=== PATIENT | female | born 1965 | race Caucasian/White ===

== ENCOUNTER 2020-12-20 13:11 | Outpatient (CLI) | payer OTHER, SELFPAY ==
--- NOTE | ~2020-12-20 | MR_ITS ---
EXAMINATION: MR brain/brain stem wo/w con DATE: 12/20/2020 14:41 INDICATION: Dystonia, unspecified. TECHNIQUE: Magnetic resonance imaging (MRI) of the brain and brainstem was performed without and with 15 mL MultiHance intravenous contrast. Sequences included sagittal and axial T1-weighted FSE, axial diffusion-weighted FS EPI, axial T2*-weighted GRE, axial T2-weighted FLAIR Propeller, and axial T2-we ighted Propeller. Postcontrast sequences included axial and coronal T1-weighted FSE. Apparent diffusi on coefficient (ADC) maps were created. COMPARISON: None. FINDINGS: There are scattered areas of nonspecific increased T2-weighted signal intensity in the cere bral white matter, which is within normal limits for the patient's age. There is no intracranial hemo rrhage, acute infarction, or abnormal intracranial mass lesion. The ventricles are normal in size. Th e paranasal sinuses are clear. The orbits are normal. The mastoid air cells are normal. IMPRESSION: 1. Normal aging brain. Reviewed, dictated and finalized at location B. IMPRESSION: 1. Normal aging brain.
[2020-12-20 14:18] LABS: Estimated Glomerular Filt Rate > 60
== END 2020-12-20 13:12 | disposition home or self-care (01) ==
PROVIDERS: PCP Internal Medicine
DX: G24.9 Dystonia, unspecified (principal)
CPT/HCPCS: 70553; A9577

== ENCOUNTER 2021-01-30 15:22 | Outpatient (CLI) | payer OTHER, SELFPAY ==
--- NOTE | ~2021-01-30 | MM_ITS ---
EXAMINATION: MM screening mammo BI HISTORY: Screening TECHNIQUE: Craniocaudal and mediolateral oblique 3-D tomosynthesis images were obtained and synthetic 2-D images were generated. CAD analysis was submitted and interpreted. COMPARISON: Comparison to multiple prior studies sequentially, with oldest reviewed study dated 10/14. BREAST PARENCHYMAL COMPOSITION: There are scattered areas of fibroglandular density. FINDINGS: There is no evidence of suspicious mass, calcification, or architectural distortion to sugg est malignancy in either breast. There has been no suspicious interval change. IMPRESSION: 1. No mammographic evidence of malignancy. 2. Recommend routine screening mammography in one year. BI-RADS Category 1: Negative Reviewed, dictated and finalized at location A.
== END 2021-01-30 15:23 | disposition home or self-care (01) ==
LOC: ANHIMG 15:25
PROVIDERS: PCP Internal Medicine; Visit Provider Internal Medicine
DX: Z12.31 Encounter for screening mammogram for malignant neoplasm of breast (principal)
CPT/HCPCS: 77067

== ENCOUNTER 2023-01-08 15:04 | Outpatient (CLI) | payer OTHER, SELFPAY ==
--- NOTE | ~2023-01-08 | MM_ITS ---
EXAMINATION: MM screening mammo BI HISTORY: Screening mammogram TECHNIQUE: Craniocaudal and mediolateral oblique images were generated. CAD analysis was submitted an d interpreted. COMPARISON: 01/30/2021 bilateral screening mammogram 11/10/2018 diagnostic left mammogram 10/27/2018 bilateral screening mammogram BREAST PARENCHYMAL COMPOSITION: The breasts are almost entirely fatty. FINDINGS: There is no evidence of suspicious mass, calcification, or architectural distortion to sugg est malignancy in either breast. There has been no suspicious interval change. IMPRESSION: 1. No mammographic evidence of malignancy. 2. Recommend routine screening mammography in one year. BI-RADS Category 1: Negative Reviewed, dictated and finalized at location A.
== END 2023-01-08 15:05 | disposition home or self-care (01) ==
LOC: ANHIMG 15:06
PROVIDERS: PCP Family Medicine; Visit Provider Internal Medicine
DX: Z12.31 Encounter for screening mammogram for malignant neoplasm of breast (principal)
CPT/HCPCS: 77067

== ENCOUNTER 2024-07-08 12:30 | Outpatient (RCR) | payer OTHER, MEDICAID, SELFPAY ==
--- NOTE | 2024-06-10 15:32 | OPREHPOC ---
Outpatient Therapy Plan of Care This is a Multidisciplinary Plan of Care that may contain components documented by all disciplines (PT, OT, and ST.) PT Problem 1 PT Problem #1 Knowledge Deficit PT Goal 1 Goal / Goal Update [place] with HEP Target Visit 4 PT Goal 2 Goal / Goal Update Report 50% reduction in cervical pain Target Visit 8 PT Problem 2 PT Problem #2 Impaired Range of Motion PT Goal 1 Goal / Goal Update 1. Improve mildred cervical rotation to 50 degrees to improve facet glide 2. Improve cervical extension to 30 degrees without increased pain to improve cervical decompression Target Visit 8 PT Problem 3 PT Problem #3 Impaired Functional Mobility PT Goal 1 Goal / Goal Update Report 75% reduction in frequency and intensity of radicular symptoms Target Visit 8
--- NOTE | 2024-06-10 15:32 | PTOPEVAL1 ---
Assessment and note entered by Shaw Shell, PT Evaluation Information Assessment Status Evaluation Diagnosis R29.898, Dystonia G24.9 ICD-10 Condition Codes (PT) Pain in right shoulder M25.511 Subjective Information Reports that she has been having pain and pins/ needles pain in mildred shoulders with tingling down to her fingers. She does not have has trouble sleeping and most of her problems come with activity. She takes Ibuprophen when she does have pain and uses topical pain cream on the shoulder. Reported Pain Level Pain Score 5: Self Report Assessment PT Clinical Summary Patient presents with signs and symptoms consistent with cervical stenosis and agitation with history of mildred scapular dystonia. I had difficulty with shoulder strength and ROM assessment due to severe nature of dystonia. Symptoms appear to be originating from cervical spine and patient reported pain relief following today's session. Patient will benefit form skilled therapy to address these deficits. Plan of Care Interventions Electrical Stimulation,Hot Pack/Cold Pack,Manual Therapy,Neuro Re-education,Therapeutic Activities, Therapeutic Exercise PT Services Indicated Yes Treatment Frequency and 2x/week for 8 visits Duration These treatments will address the objective and functional deficits as defined above. The patient will be advanced safely and appropriately in order for the patient to progress towards his/her prior level of function. Additional exercises will be introduced and as well as a comprehensive home exercise program upon discharge, if needed, ?to ensure carryover of functional gains achieved in the clinic. This treatment plan has been reviewed and agreement upon by the patient.
--- NOTE | 2024-07-08 13:19 | PTOPDC ---
Assessment and note entered by Sonya Drew, PT Assessment Status Discharge Diagnosis R29.898, Dystonia G24.9 ICD-10 Condition Codes (PT) Pain in right shoulder M25.511 Subjective Information everything is better since coming for therapy; no pain and stronger; Reported Pain Level Pain Score 0: Self Report Pain Score 0: Self Report Additional Pain Score Comments no pain in her neck or shoulders anymore, no numbness or tingling; Assessment PT Clinical Summary Floridalma has received 8 PT sessions. Compared to the initial evaluation: now reports no pain for the past 2 weeks; no radicular pain into UE's; self assessment with Quick DASH rating of 0% limitation in activity level; increase cervical rotation to R and L and extension ROM and no pain with motions; education completed for HEP and stretching and strengthening of cervical-thoracic musculature. She continues to have dystonia with involuntary motions of neck and R shoulder; tends to position her R UE in extension and adducted position. The goals were achieved. Discharge PT. She is to continue with her HEP. Plan of Care PT Services Indicated No
== END 2024-07-08 14:15 | disposition home or self-care (01) ==
LOC: ANHPT 12:30
PROVIDERS: PCP Family Medicine; Visit Provider Family Medicine
DX: R29.898 Other symptoms and signs involving the musculoskeletal system (principal); O66.0 Obstructed labor due to shoulder dystocia; G24.9 Dystonia, unspecified; Z3A.00 Weeks of gestation of pregnancy not specified
CPT/HCPCS: 97110; 97140; 97161; 97530

== ENCOUNTER 2024-12-03 14:30 | Outpatient (RCR) | payer OTHER, MEDICAID, SELFPAY ==
--- NOTE | 2024-10-20 16:28 | OPREHPOC ---
Outpatient Therapy Plan of Care This is a Multidisciplinary Plan of Care that may contain components documented by all disciplines (PT, OT, and ST.) PT Problem 1 PT Problem #1 Knowledge Deficit PT Goal 1 Goal / Goal Update *independent with HEP Target Visit 10 PT Problem 2 PT Problem #2 Pain PT Goal 1 Goal / Goal Update * pt report pain at worst of R and L UE 06/14 Target Visit 10 PT Problem 3 PT Problem #3 Impaired Strength PT Goal 1 Goal / Goal Update increase strength of R and L UE's, to improve ability to do upper body dressing, self care and home tasks in standing: active motion x 5 reps 1* R shoulder flexion to 30' 2* R shoulder abduction to 20' 3* L shoulder flexion to 95' 4* L shoulder abduction to 40' 5* R elbow flexion/extension 6* L elbow flexion/extension Target Visit 10 PT Problem 4 PT Problem #4 Impaired Range of Motion PT Goal 1 Goal / Goal Update increase ROM of shoulders: passive stretch in supine, to increase joint mobility 1* R shoulder flexion to 80' 2* L shoulder flexion to 120' 3* R shoulder abduction to 50' 4* L shoulder abduction to 90'
--- NOTE | 2024-10-20 16:28 | PTOPEVAL1 ---
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 GOAL: no pain in arms; get arms stronger Reported Pain Level Pain Score 4: Self Report Additional Pain Score Comments pain rating in the past week- stays moderate, about 4/10 all the time; R and L shoulder, wrist hurt; fingers go numb and pins/needles decrease pain: ice, ibuprofen increase pain: writing, word search puzzles Assessment PT Clinical Summary Ayde has the diagnosis of pain in both arms. She has had PT in the past here and has been doing her HEP, but arms hurting more and more weakness. Reports now having problems moving arms to get dressed and eat. Self assessment with the Quick DASH rating of 45% limitation in activity level. With the evaluation: increase tone and spasms in both UE's, R more than L; decreased strength and ROM of both shoulders; poor standing position with R UE in shoulder IR and adduction position. Skilled PT services are indicated for modalities to decrease pain, therapeutic exercises to increase R and L UE strength and education for HEP , posture and positioning of UE's. Plan of Care Interventions Electrical Stimulation,Hot Pack/Cold Pack,Manual Therapy,Patient/Caregiver Education,Therapeutic Activities,Therapeutic Exercise,Ultrasound,Other Other Interventions taping PT Services Indicated Yes Treatment Frequency and 1-2x/wk for 10 visits Duration These treatments will address the objective and functional deficits as defined above. The patient will be advanced safely and appropriately in order for the patient to progress towards his/her prior level of function. Additional exercises will be introduced and as well as a comprehensive home exercise program upon discharge, if needed, ?to ensure carryover of functional gains achieved in the clinic. This treatment plan has been reviewed and agreement upon by the patient.
--- NOTE | 2024-11-26 14:53 | PCPTNOTE ---
Pt canceled due to transportation issues.
--- NOTE | 2024-12-03 15:22 | OPREHPOC ---
Outpatient Therapy Plan of Care This is a Multidisciplinary Plan of Care that may contain components documented by all disciplines (PT, OT, and ST.) PT Problem 1 PT Problem #1 Knowledge Deficit PT Goal 1 Goal / Goal Update *independent with HEP 12-03-24 d/c goal met Target Visit 10 Progress Met PT Problem 2 PT Problem #2 Pain PT Goal 1 Goal / Goal Update * pt report pain at worst of R and L UE 06/14 12-03-24 d/c goal not met, 12/12 at worst Target Visit 10 Progress Not Met PT Problem 3 PT Problem #3 Impaired Strength PT Goal 1 Goal / Goal Update increase strength of R and L UE's, to improve ability to do upper body dressing, self care and home tasks in standing: active motion x 5 reps 1* R shoulder flexion to 30' 2* R shoulder abduction to 20' 3* L shoulder flexion to 95' 4* L shoulder abduction to 40' 5* R elbow flexion/extension 6* L elbow flexion/extension 12-03-24 d/c goals met Target Visit 10 Progress Met PT Problem 4 PT Problem #4 Impaired Range of Motion PT Goal 1 Goal / Goal Update increase ROM of shoulders: passive stretch in supine, to increase joint mobility 1* R shoulder flexion to 80' 2* L shoulder flexion to 120' 3* R shoulder abduction to 50' 4* L shoulder abduction to 90' 12-03-24 d/c goals met Target Visit 10 Progress Met
--- NOTE | 2024-12-03 15:22 | PTOPDC ---
Assessment and note entered by Sonya Drew, PT Assessment Status Discharge ICD-10 Condition Codes (PT) Pain in right shoulder M25.511,Pain in left shoulder M25.512,Weakness R53.1 Other ICD-10 Condition Codes ( dystonia G24.9 pain in arm M 79.603 PT) Onset August 2024 Subjective Information better since coming for therapy--can use the fork better and cut up the bread for the squirrels; can get shirt on easier; doing the exercises at home; need to not work on my word search puzzles for as long as I do--sitting too long doing them; going to a new neurologist in February. Reported Pain Level Pain Score Self Report Additional Pain Score Comments pain range in the past week: 0-8/10, both shoulders decrease pain: over the counter meds/advil and rest, muscle cream increase pain: when doing word search puzzles too long; Assessment PT Clinical Summary Ayde has received 9 PT sessions. She has improved with today's reassessment: pain from 4-10/10 to 0-8/10; self assessment with Quick Dash from 45 to 14% limitation in activity level; increase in strength and ROM of both shoulders and elbows, education completed for HEP. She continues to have increased tone of both UE's. The goals were achieved except pain rating at worst. Discharge PT. She is to continue with her HEP and increase use of UE's with home and self care activities. Plan of Care PT Services Indicated No
== END 2024-12-06 11:57 | disposition home or self-care (01) ==
LOC: ANHPT 14:30
PROVIDERS: PCP Family Medicine; Visit Provider Family Medicine
DX: M79.603 Pain in arm, unspecified (principal); R29.898 Other symptoms and signs involving the musculoskeletal system; G24.9 Dystonia, unspecified
CPT/HCPCS: 97110; 97140; 97162; 97530